=== PATIENT | male | born 1970 | race Caucasian/White ===

== ENCOUNTER 2021-12-18 16:44 | Emergency (ER) | payer OTHER ==
[~2021-12-18] VITALS: Ht 172.7 cm; Wt 81.7 kg
[2021-12-18 17:29] LABS: BASOPHILS ABSOLUTE AUTO 0.04 K/mm3 (0.00-0.23); BASOPHILS PERCENT AUTO 1 % (0-2); EOSINOPHILS ABSOLUTE AUTO 0.08 K/mm3 (0.00-0.68); EOSINOPHILS PERCENT AUTO 1 % (0-6); Hematocrit 43.8 % (37.0-53.0); Hemoglobin 14.8 g/dL (13.5-17.5); IMMATURE GRAN ABSOLUTE AUTO 0.03 K/mm3 (0.00-0.10); IMMATURE GRAN PERCENT AUTO 0 % (0-1); LYMPHOCYTES PERCENT AUTO 31 % (21-46); MONOCYTES ABSOLUTE AUTO 0.69 K/mm3 (0.16-1.47); MONOCYTES PERCENT AUTO 9 % (4-13); Mean Corpuscular HGB 29.1 pg (26.0-34.0); Mean Corpuscular HGB Conc 33.8 g/dL (31.5-36.5); Mean Corpuscular Volume 86 fL (80-100); Mean Platelet Volume 8.6 fL (9.1-12.4); NEUTROPHILS ABSOLUTE AUTO 4.77 K/mm3 (1.96-9.15); NEUTROPHILS PERCENT AUTO 59 % (41-73); Platelet Count 362 K/mm3 (150-400); RDW Coefficient Variation 12.7 % (11.7-14.2); Red Blood Cell Count 5.09 M/mm3 (4.30-5.90); White Blood Cell Count 8.11 K/mm3 (4.00-11.30)
[2021-12-18 17:58] LABS: Alanine Aminotransfer (ALT/SGP 52 U/L (12-78); Albumin, Blood 3.7 g/dL (3.4-5.0); Alk Phos 77 U/L (50-136); Anion Gap 3 mmol/L (6-16); Aspartate Aminotrans (AST/SGOT 18 U/L (12-37); Bilirubin, Total 0.2 mg/dL (0.1-1.0); Blood Urea Nitrogen 14 mg/dL (8-24); CO2, Blood 25 mmol/L (21-32); Calcium, Blood 8.9 mg/dL (8.5-10.1); Chloride, Blood 107 mmol/L (98-108); Creatinine, Blood 0.78 mg/dL (0.60-1.20); Globulin, Blood 3.7 g/dL (2.2-4.0); Glomerular Filtration Rate >60 (60-); Glucose, Blood 111 mg/dL (70-99); Potassium, Blood 4.3 mmol/L (3.5-5.5); Sodium, Blood 135 mmol/L (136-145); Total Protein, Blood 7.4 g/dL (6.4-8.2)
[2021-12-18 18:55] LABS: Source, Urine Clean Catch
[2021-12-18 19:02] LABS: Bilirubin, Urine Neg (Neg); Glucose Qualitative, Urine Neg (Neg); Ketones, Urine Neg (Neg); Protein, Urine 1+ (Neg); Urobilinogen, Urine NORM (Normal)
[2021-12-18 19:31] LABS: Appearance, Urine Hazy (Clear); Blood, Urine Neg (Neg); Color, Urine Yellow (P-Yellow); Leukocyte Esterase, Urine Neg (Neg); Nitrite, Urine Neg (Neg); pH, Urine 6.5 (5.0-8.0)
[2021-12-18 19:36] LABS: Specific Gravity, Urine 1.015 (1.003-1.022)
[2021-12-18 19:37] LABS: Bacteria Rare /hpf; Red Blood Cells, Urine 0-2 /hpf (0-2); Squamous Epithelial Cells Rare /hpf (Few); White Blood Cells, Urine 0-2 /hpf (0-5)
[2021-12-18 19:38] LABS: Amorphous Light (0-Heavy)
== END 2021-12-18 20:15 | disposition home or self-care (01) ==
LOC: ER 16:44
PROVIDERS: Physician Assistant
DX: E86.0 Dehydration (principal)
CPT/HCPCS: 36415; 71046; 80053; 81001; 85025; 99285-25; J7120

== ENCOUNTER → 2024-04-24 | Outpatient (CLI) | payer OTHER | LOC: LAB 18:08 → LAB SHORT 18:08 | DX: R35.0 Frequency of micturition (principal) | CPT/HCPCS: 87086 ==

== ENCOUNTER → 2024-04-28 | Outpatient (CLI) | payer OTHER | LOC: LAB SHORT 13:37 → LAB 13:37 | DX: R35.0 Frequency of micturition (principal) | CPT/HCPCS: 87086 ==